=== PATIENT | male | born 2000 | race Caucasian/White ===

== ENCOUNTER 2021-10-29 15:14 | Emergency (ER) | payer OTHER, SELFPAY ==
[2021-10-29 15:16] VITALS: BP 119/96; PULSE 85; RESP 18; TEMP 37.6; O2SAT 100
--- NOTE | 2021-10-29 15:40 | W.ED.GENAD ---
Discharge Plan Disposition Patient Disposition: HOME Condition: Stable Discharge Details Chief Complaint: GenMedical Clinical Impression: Rash ED Provider: Jericho Marie Home Meds and New Rx's Prescriptions: No Action No Known Home Meds Discharge Instructions Instructions: Acute Rash (ED) Additional Instructions: Please quarantine in your hotel room until you hear back from the [facility] regarding your test results. Be sure to cover up the rashes under skin when you are traveling. If someone needs to come in the room please have him wear a mask and do not allow people to visit for an extended period of time. Please return the emergency department if you develop any worsening symptoms. Medical Decision Making 21-year-old male presents with generalized fatigue intermittent fever, body aches, vesicular rash involving dorsum and palms and soles of both hands and feet that developed over the last day. Patient is traveling from [place] on a mountain biking tour. No one in his travel green party is ill at the moment. Patient denies any medication use, denies any past medical history, denies any new sexual partners, denies any history of STIs. Generally nontoxic however tachycardic. No respiratory distress. Hemodynamically stable. Must consider on detox versus syphilis versus coxsackie versus less likely poison darrian or contact dermatitis versus less likely drug reaction versus HIV. Will obtain labs screening chest x-ray, blood cultures, HIV screening, syphilis RPR, will contact health department and swab for multiplex. Disposition pending reassessment and results. Consider admission for quarantine versus discharge home with strict quarantine instructions 18: 33 [facility] department has been contacted, specimens have been collected and sent to lab will be picked up by assignment officer from the [facility] around 730 or 8 AM tomorrow. Patient resting comfortably labs and imaging unremarkable. Given home care instructions and quarantine instructions as well as strict return precautions. HPI General Date/Time Provider Initiated Documentation: 10/29/21 15:18. HPI Narrative: 21-year-old male traveling from [place] on [employer] biking circuit presents with generalized fatigue body aches and rash that is developed on his hands and feet. Denies medication use, denies any new sexual partners, denies any history of STIs. Had felt febrile and had a slight nonproductive cough that has resolved. Knowing that he is traveling with his sick at the moment Related Data Home Medications Medication Instructions Recorded Confirmed Unknown [No Known Home Meds] 10/29/21 10/29/21 Allergies Allergy/AdvReac Type Severity Reaction Status Date / Time No Known Allergies Allergy Unverified 10/29/21 15:25 General Stated Complaint: Allergic LINDEN: 3 Review of Systems Narrative: Review of Systems Constitutional: Fatigue, fevers Eyes: negative ENT: negative Cardiovascular: negative Respiratory: negative Gastrointestinal: negative : negative Musculoskeletal: negative Skin: Rash Neurologic: negative Psych: negative PFSH All Active Problems (Updated 10/29/21 @ 18:05 by Jericho Marie MD) Rash (Acute) Social History Smoking/Tobacco Use Status: Current-Occasional Tobacco Type: e-cigarettes Smoking risk assessment performed?: Yes Alcohol Intake: current Alcohol Intake frequency: a few times a month Alcohol type: beer, wine and hard liquor Substance use type: does not use Do you feel safe at home: Yes Do you feel safe in your relationship?: Yes Exam Narrative Exam Narrative: Physical Examination General: alert, awake, cooperative, resting comfortably, no acute distress HEENT: normocephalic, atraumatic; PERRL, EOM intact, conjunctiva normal; no nasal discharge; moist mucous membranes, oral and pharyngeal mucosa normal, tolerating secretions Neck: supple, trachea midline; full ROM Chest: normal to inspection Respiratory: normal respiratory effort, speaking in full sentences, clear to auscultation, no wheezing, rales or rhonchi Cardiac: Tachycardia, regular rhythm, S1S2 intact, no murmurs rubs or gallops GI: abdomen soft, non-tender, non-distended; no palpable mass or hepatosplenomegaly Skin: Vesicular clustered lesions involving hands and feet both the dorsum and the palms and soles of both hands and feet Neuro: AAOx3, normal speech, moving all extremities Psych: Appropriate mood and affect Course Vital Signs Vital signs: Vital Signs Temperature 37.6 C 10/29/21 15:16 Pulse 85 10/29/21 15:16 Respiratory Rate 18 10/29/21 15:16 Blood Pressure 119/96 H 10/29/21 15:16 Pulse Oximetry 100 10/29/21 15:16 Temperature 37.6 C 10/29/21 15:16 Temperature Source Temporal Artery Scan 10/29/21 15:16 Pulse 85 10/29/21 15:16 Respiratory Rate 18 10/29/21 15:16 Respiratory Effort Non-Labored 10/29/21 15:24 Blood Pressure 119/96 H 10/29/21 15:16 Blood Pressure Position Supine 10/29/21 15:16 Pulse Oximetry 100 10/29/21 15:16 Oxygen Delivery Method Room Air 10/29/21 15:16 Oxygen Flow Rate 0 10/29/21 15:16 Pain Level 0 10/29/21 15:16 Lab/Test Results Lab/Test Results: 10/29/21 15:31 Blood Blood Culture - Pending 10/29/21 15:31 Blood Blood Culture - Pending PAWSS Have you Been Recently Intoxicated or Drunk Within the Last 30 days?: Yes Have you Ever Experienced Previous Episodes of Alcohol Withdrawal?: No Have you ever Experienced Withdrawal Seizures?: No Have you ever Experienced Delirium Tremens(DT)s?: No Have you ever undergone Alcohol Rehabilitation Treatment (i.e, inpt ot outpatient treatment programs)?: No Have you ever Experienced Blackouts?: No Have you ever Combined Alcohol with other Downers within the last 90 days?: No Have you ever Combined Alcohol with any other Substance of Abuse during the last 90 days?: No Positive Blood Alcohol level on Presentation? [PCS.BAL]: No Evidence of Increased Autonomic Activity (i.e. HR>120, tremor, sweating, agitation, nausea)?: No Result: 1
[2021-10-29] MEDS: Normal Saline 1,000 ML 1000 ML IV (15:55)
[2021-10-29 16:02] LABS: Source Nasal/Nares
[2021-10-29 16:07] VITALS: RESP 17
[2021-10-29 16:07] LABS: Abs Immature Grans 0.03 10^3/uL (0.0-0.06); Absolute Basophil Count 0.03 10^3/uL (0.0-0.2); Absolute Eosinophil Count 0.06 10^3/uL (0.0-0.7); Absolute Lymphocyte Count 0.91 10^3/uL (1.2-3.4); Absolute Monocyte Count 0.92 10^3/uL (0.1-0.8); Basophils % 0.3; Eosinophils % 0.7; HCT 38.6 % (40.0-50.0); HGB 13.7 g/dL (13.5-17.5); Immature Grans % 0.3; Lymphocytes % 10.1; MCH 30.9 pg (27.0-33.0); MCHC 35.5 % (32.0-36.0); MCV 87 fL (80-95); MPV 10.1 fL (8.0-11.0); Monocytes % 10.2; Neutrophils % 78.4; Platelet Count 188 10^3/uL (130-400); RBC 4.43 10^6/uL (4.36-5.78); RDW 11.5 % (11.8-14.1); RDW-SD 36.7 fL; WBC 9.05 10^3/uL (4.4-10.8)
--- NOTE | 2021-10-29 16:16 | DI.RAD_ITS ---
Exam(s) XR PORTABLE CHEST AP EXAM: XR PORTABLE CHEST AP CLINICAL HISTORY: fever, fatigue TECHNIQUE: 2D digital imaging was performed. COMPARISON: No exams were available for comparison FINDINGS: LUNGS: Clear. No pleural abnormality seen. HEART: Normal. AORTA: Normal. BONES: Unremarkable for age. Soft tissues: Unremarkable. IMPRESSION: No acute findings. DATA REPOSITORY: RADIATION DOSE DELIVERED:
[2021-10-29 16:19] LABS: ALT 30 U/L (16-63); AST 23 U/L (15-37); Albumin 3.7 g/dL (3.4-5.0); Alkaline Phosphatase 69 U/L (46-116); Anion Gap 10.2 mmol/L (3-11); BUN 12 mg/dL (7-18); Bilirubin, Total 0.5 mg/dL (0.2-1.0); CO2 26.8 mmol/L (21.0-32.0); CREATININE 0.8 mg/dL (0.70-1.30); Calcium 8.6 mg/dL (8.5-10.1); Chloride 105 mmol/L (98-107); Glucose 103 mg/dL (74-106); Potassium 3.3 mmol/L (3.5-5.1); Sodium 142 mmol/L (136-145); Total Protein 7.2 g/dL (6.4-8.2)
[2021-10-29 16:22] LABS: PTT Activated 24.8 sec (21.0-27.5); Prothrombin Time 10.2 sec (9.3-11.0)
[2021-10-29 16:38] LABS: COVID-19 PCR Negative (Negative)
[2021-10-29 18:22] VITALS: BP 126/70; PULSE 68; RESP 18; TEMP 36.6; O2SAT 98
[2021-11-01 11:44] LABS: Syphilis Serology (RPR) Negative (Negative)
[2021-11-01 12:36] LABS: HIV-1/2 Ag & Ab Screen Negative (Negative)
[2021-11-09 17:03] LABS: Result See Comments
[2021-11-09 17:04] LABS: Result See Comments
== END 2021-10-29 18:14 | disposition home or self-care (01) ==
LOC: ER 18:08
PROVIDERS: Emergency Provider Emergency Medicine
DX: R21 Rash and other nonspecific skin eruption (principal); R53.83 Other fatigue; R50.9 Fever, unspecified; F17.290 Nicotine dependence, other tobacco product, uncomplicated; Z20.822 Contact with and (suspected) exposure to COVID-19
CPT/HCPCS: 80053; 81220; 81222; 87040; 87389; 87635; 96360; 99283; 71045; 81003; 85025; 85610; 85730; 86592; 99284